=== PATIENT | female | born 2000 | race Hispanic/Latino ===

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

== ENCOUNTER 2018-11-08 15:55 | Emergency (ER) | payer SELFPAY ==
[2018-11-08 16:58] LABS: Bilirubin Negative (Negative); Blood, Urine Large (Negative); Clarity Clear (Clear); Glucose, Urine (Dipstick) Negative (Negative); Leukocyte Negative (Negative); Nitrite Negative (Negative); Protein, Urine (Dipstick) Negative (Neg-Trace); Urobilinogen 0.2 mg/dL (0.2-1.0); pH, Urine 5.5 (5.0-9.0)
[2018-11-08 17:00] LABS: Pregnancy Test - Urine (BHCG) Negative (Negative); Pregu Control Background? CLEAR/WHITE (CLR/WHITE); Pregu Control Bar Appear? YES (CONTROL BAR)
[2018-11-08 17:02] LABS: RBC/HPF 21-50 HPF (0-3); WBC/HPF 0-3 HPF (0-3)
[2018-11-08 17:03] LABS: Bacteria/HPF 3+ HPF (None Seen); Other Microscopic Description MUCOUSE THREADS
[2018-11-10 03:07] LABS: Chlamydia by PCR Not Detected (NotDetected); GC by PCR Not Detected (NotDetected)
== END 2018-11-08 17:15 | disposition home or self-care (01) ==
LOC: BURERS 15:55
DX: N93.9 Abnormal uterine and vaginal bleeding, unspecified (principal)
CPT/HCPCS: 81003; 81015; 81025; 87480; 87491; 87510; 87591; 87660; 99283

== ENCOUNTER 2019-01-17 12:59 | Emergency (ER) | payer SELFPAY ==
[2019-01-17 13:33] LABS: Pregnancy Test - Urine (BHCG) Negative (Negative); Pregu Control Background? CLEAR/WHITE (CLR/WHITE); Pregu Control Bar Appear? YES (CONTROL BAR)
[2019-01-17 13:33] LABS: Clarity Clear (Clear)
[2019-01-17 13:34] LABS: Bilirubin Negative (Negative); Blood, Urine Trace (Negative); Glucose, Urine (Dipstick) Negative (Negative); Leukocyte Small (Negative); Nitrite Negative (Negative); Protein, Urine (Dipstick) Negative (Neg-Trace); pH, Urine 6.5 (5.0-9.0)
[2019-01-17 13:36] LABS: Bacteria/HPF Rare-Few HPF (None Seen); RBC/HPF 0-3 HPF (0-3); Squamous Epithelial 0-3 HPF (0-3); Transitional Epithelial 0-3 HPF (0-3); WBC/HPF 0-3 HPF (0-3)
[2019-01-19 20:54] LABS: Chlamydia by PCR Not Detected (NotDetected); GC by PCR Not Detected (NotDetected)
== END 2019-01-17 14:00 | disposition home or self-care (01) ==
LOC: BURERS 12:59
DX: N72 Inflammatory disease of cervix uteri (principal); R10.30 Lower abdominal pain, unspecified
CPT/HCPCS: 81003; 81015; 81025; 87480; 87491; 87510; 87591; 87660; 99284

== ENCOUNTER 2020-03-29 23:44 | Emergency (ER) | payer OTHER, SELFPAY ==
[2020-03-30] MEDS ORDERED: Ibuprofen 200 MG TAB ONE (01:40)
[2020-03-30 01:43] LABS: Bilirubin Small (Negative); Blood, Urine Trace (Negative); Clarity Cloudy (Clear); Glucose, Urine (Dipstick) Negative (Negative); Ketone, Urine 15 mg/dL (Negative); Leukocyte Negative (Negative); Nitrite Negative (Negative); Protein, Urine (Dipstick) 30 mg/dL (Neg-Trace); pH, Urine 5.5 (5.0-9.0)
[2020-03-30 01:45] LABS: Specific Gravity, Urine 1.033 (1.002-1.036)
[2020-03-30 01:47] LABS: Pregnancy Test - Urine (BHCG) Negative (Negative); Pregu Control Background? CLEAR/WHITE (CLR/WHITE); Pregu Control Bar Appear? YES (CONTROL BAR); Specific Gravity 1.033 (1.002-1.036)
[2020-03-30 01:52] LABS: Bacteria/HPF 2+ HPF (None Seen); Mucous/LPF 2+ LPF (<2+); WBC/HPF 0-3 HPF (0-3)
[2020-03-30] MEDS ORDERED: Dicyclomine 20 MG TAB ONE (01:59)
[2020-03-31 12:30] LABS: SARS-CoV-2 MS2 Positive; SARS-CoV-2 N Gene Negative; SARS-CoV-2 S Gene Negative; SARS-CoV-2 by NAA Not Detected (NotDetected); SARS-CoV-2 orf1ab Negative
== END 2020-03-30 02:02 | disposition home or self-care (01) ==
LOC: BURERS 23:44
DX: B34.9 Viral infection, unspecified (principal); R19.7 Diarrhea, unspecified; J45.909 Unspecified asthma, uncomplicated; Z20.828 Contact with and (suspected) exposure to other viral communicable diseases
CPT/HCPCS: 81003; 81015; 81025; 87086; 87635; 87804; 99284; U0003

== ENCOUNTER 2020-04-02 01:07 | Emergency (ER) | payer SELFPAY ==
[2020-04-02 01:57] LABS: ALT (SGPT) 52 U/L (8-55); AST (SGOT) 58 U/L (5-34); Alkaline Phosphatase 137 U/L (40-110); Anion Gap 14 mmol/L (10-20); BUN (Urea Nitrogen) 7 mg/dL (7.0-18.7); Bilirubin, Total 0.6 mg/dL (0.2-1.2); Calc. Creatinine Clearance 0 mL/min (70-130); Calcium 9.2 mg/dL (7.8-10.44); Carbon Dioxide 23 mmol/L (22-29); Chloride 105 mmol/L (98-107); Estimated GFR-MDRD Greater than 90; Globulin 3.4 g/dL (2.4-3.5); Glucose 101 mg/dL (70-105); Lipase 28 U/L (8-78); Potassium 3.3 mmol/L (3.5-5.1); Protein, Total 7.4 g/dL (6.0-8.3); Sodium 139 mmol/L (136-145)
[2020-04-02 02:03] LABS: Hemoglobin 13.3 g/dL (12.0-16.0); Mean Corpuscular HGB CONC 32.4 g/dL (32.0-36.0); Mean Corpuscular Hemoglobin 28.1 pg (27.0-31.0); Mean Corpuscular Volume 86.8 fL (78.0-98.0); Platelet Count 240 thou/uL (130-400); RBC Distribution Width 12.1 % (11.5-14.5); Red Blood Cell (RBC) Count 4.72 mill/uL (4.20-5.40); White Blood Cell (WBC) Count 8.1 thou/uL (4.8-10.8)
[2020-04-02 02:04] LABS: Manual Diff?? YES; Mean Platelet Volume 9.4 fL (7.4-10.4)
[2020-04-02 02:09] LABS: Band 3 % (5-11); Lymphocytes 34 % (21-51); Monocytes 5 % (0-10); Neutrophil 52 % (42-75); Reactive Lymphocytes 3 % (0-10)
[2020-04-02 02:10] LABS: Eosinophils 3 % (0-10); Toxic Granulation SLIGHT
[2020-04-02 02:11] LABS: MDiff Complete? YES; Platelet Morphology Comment Appears Adequate; RBC Morphology Normal
[2020-04-02 02:17] LABS: BHCG - Serum Negative (NEGATIVE); Pregs Control Background? CLEAR/WHITE (CLR/WHITE); Pregs Control Bar Appear? YES (CONTROL BAR)
--- NOTE | 2020-04-02 07:17 | CT ---
PRELIMINARY REPORT/[facility]/EMERGENCY AFTER HOURS PROCEDURE: EXAM: CT Abdomen and Pelvis with Intravenous Contrast CLINICAL HISTORY: PT is a 19 yo female who presents with worsening mid to LUQ abdominal pain radiating into the bilater al lower quadrants. Patient notes numerous loose stools non bloody, green in appearance. Patient had a recent COVID swab on March 30 in the ED and the result was negative. Patient denies other sick conta cts. No recent travel or antibiotics. Denies cough, chest pain, or shortness of breath. No flank pain . No vaginal discharge or dysuria or urgency. No abdominal surgical history. TECHNIQUE: Axial computed tomography images of the abdomen and pelvis with intravenous contrast. CONTRAST: With; 100ml ISO 370 COMPARISON: None provided. FINDINGS: LUNG BASES: No basilar airspace consolidation or pleural effusion. LIVER: Unremarkable. GALLBLADDER AND BILE DUCTS: Unremarkable. No calcified stone. No ductal dilation. PANCREAS: Unremarkable. SPLEEN: Unremarkable. ADRENAL GLANDS: Unremarkable. KIDNEYS, URETERS, AND BLADDER: Unremarkable. No hydronephrosis or nephrolithiasis. No ureteral or bladder calculi. STOMACH AND BOWEL: Diffuse mural thickening of the colon most prominent in the transverse and ascending colon with adjac ent pericolonic mild inflammatory changes is compatible with colitis. No bowel obstruction. APPENDIX: Normal appendix. PERITONEUM: No free fluid. No free air. LYMPH NODES: Increased number of mildly enlarged lymph nodes in the mesentery may be reactive. REPRODUCTIVE: Unremarkable as visualized. VASCULATURE: No aortic aneurysm. BONES: No fracture or suspicious osseous abnormality. ABDOMINAL WALL AND SOFT TISSUES: Foci of gas within the subcutaneous soft tissues of the right buttocks adjacent to the gluteal muscle s may be related to an injection. Correlation with history assess her physical examination is recomme nded in order to exclude an infectious process. IMPRESSION: Diffuse mural thickening of the colon most prominent in the transverse and ascending colon with adjac ent pericolonic mild inflammatory changes is compatible with colitis. Foci of gas within the subcutaneous soft tissues of the right buttocks adjacent to the gluteal muscle s may be related to an injection. Correlation with history assess her physical examination is recomme nded in order to exclude an infectious process. ELECTRONICALLY SIGNED BY: Mariel Uriarte MD Apr 02, 2020 3:08:57 AM CDT This report is intended for review by the ordering physician only, in accordance of law. If you recei ve this report in error, please call [facility] at [phone]. FINAL REPORT CT ABDOMEN AND PELVIS WITH CONTRAST: Date: 04/02/[address] of the abdomen and pelvis was performed for evaluation of pain. The right lung base is clear. In the left lung base, there are a few patchy areas that are nonspecifi c in appearance, one in the lingula and one in the left lower lobe. In the left lower lobe, some of t he bronchi seem slightly dilated peripherally, so there might even be a little focal area of bronchie ctasis here. There are no effusions. The liver and spleen contain no space-occupying disease. The liver may be upper normal in size. The p ancreas and adrenal glands appear normal. The gallbladder is decompressed, but no stones seen within it. No mass or hydronephrosis seen in either kidney. Aorta is normal in caliber. The major finding on the study is diffuse wall thickening of the colon beginning around the ascending colon region and extending through most of the transverse colon. The more distal portions of the col on seem a bit more normal. Colitis is presumed. Small bowel is not dilated. There is a plethora of mi ldly enlarged mesenteric nodes. No free air or free fluid present. CT of the pelvis shows a 4.0 cm cystic appearing area in the right adnexa. I cannot rule out a cyst h ere. An elective ultrasound might be helpful. No free fluid or inflammatory changes seen here. IMPRESSION: 1. Findings consistent with diffuse colitis involving primarily the ascending and transverse colon. This could be either infectious or inflammatory in nature. 2. A few patchy areas in the left lung base. I understand the patient has had a recent COVID test th at was negative. I would wonder if might be worth a retest to be certain. 3. Reactive nodes in the mesentery. 4. Possible 3-4 cm right adnexal cyst. Elective ultrasound recommended. Report in substantial agreement with preliminary reading by [facility]. POS: HOME
== END 2020-04-02 02:23 | disposition home or self-care (01) ==
LOC: BURERS 01:07
DX: K52.9 Noninfective gastroenteritis and colitis, unspecified (principal)
CPT/HCPCS: 74177; 80053; 83690; 84703; 85025; 96360; 96372; J0500

== ENCOUNTER 2020-04-25 15:18 | Emergency (ER) | payer SELFPAY ==
[2020-04-25 16:52] LABS: Bilirubin Negative (Negative); Blood, Urine Negative (Negative); Glucose, Urine (Dipstick) Negative (Negative); Ketone, Urine Negative (Negative); Leukocyte Small (Negative); Nitrite Negative (Negative); Protein, Urine (Dipstick) Negative (Neg-Trace); pH, Urine 6.5 (5.0-9.0)
[2020-04-25 16:56] LABS: Clarity Cloudy (Clear)
[2020-04-25 16:57] LABS: Bacteria/HPF 1+ HPF (None Seen); Pregnancy Test - Urine (BHCG) Negative (Negative); Pregu Control Background? CLEAR/WHITE (CLR/WHITE); Pregu Control Bar Appear? YES (CONTROL BAR); RBC/HPF 0-3 HPF (0-3)
== END 2020-04-25 17:05 | disposition home or self-care (01) ==
LOC: BURERS 15:18
DX: R55 Syncope and collapse (principal); J45.909 Unspecified asthma, uncomplicated; F41.9 Anxiety disorder, unspecified; Z79.899 Other long term (current) drug therapy
CPT/HCPCS: 36416; 81003; 81015; 81025; 87086; 99284

== ENCOUNTER 2020-05-18 10:03 | Emergency (ER) | payer OTHER, SELFPAY ==
[2020-05-19 13:38] LABS: SARS-CoV-2 MS2 Positive; SARS-CoV-2 N Gene Negative; SARS-CoV-2 S Gene Negative; SARS-CoV-2 by NAA Not Detected (NotDetected); SARS-CoV-2 orf1ab Negative
== END 2020-05-18 10:24 | disposition home or self-care (01) ==
LOC: BURERS 10:03
DX: B34.9 Viral infection, unspecified (principal); Z20.828 Contact with and (suspected) exposure to other viral communicable diseases; J45.909 Unspecified asthma, uncomplicated; F41.9 Anxiety disorder, unspecified
CPT/HCPCS: 87635; 99283; U0003

== ENCOUNTER 2020-12-07 01:11 | Emergency (ER) | payer OTHER, SELFPAY | END 2020-12-07 01:45 | disposition home or self-care (01) | LOC: BURERS 01:11 | DX: O9A.212 Injury, poisoning and certain other consequences of external causes complicating pregnancy, second trimester (principal); S30.1XXA Contusion of abdominal wall, initial encounter; Z3A.14 14 weeks gestation of pregnancy; W19.XXXA Unspecified fall, initial encounter ==

== ENCOUNTER 2022-05-20 23:56 | Emergency (ER) | payer SELFPAY ==
[2022-05-21] MEDS ORDERED: Acetaminophen 500 MG TAB ONE (00:20)
[2022-05-21 00:25] LABS: Bilirubin Negative (Negative); Blood, Urine Negative (Negative); Clarity Clear (Clear); Glucose, Urine (Dipstick) Negative (Negative); Ketone, Urine Negative (Negative); Leukocyte Small (Negative); Nitrite Negative (Negative); Protein, Urine (Dipstick) Negative (Neg-Trace); Specific Gravity, Urine 1.015 (1.005-1.030); Urobilinogen 0.2 mg/dL (Less than 2); pH, Urine 7.5 (5.0-9.0)
[2022-05-21 00:33] LABS: Bacteria/HPF 1+ HPF (None Seen); RBC/HPF None Seen HPF (0-3); Squamous Epithelial 0-3 HPF (0-3)
[2022-05-21] MEDS ORDERED: Nitrofurantoin Monohyd/M-Cryst 100 MG CAP ONE (00:43)
== END 2022-05-21 00:53 | disposition home or self-care (01) ==
LOC: BURERS 23:56
DX: O99.891 Other specified diseases and conditions complicating pregnancy (principal); M54.50 Low back pain, unspecified; R82.71 Bacteriuria; Z3A.29 29 weeks gestation of pregnancy
CPT/HCPCS: 81003; 81015; 87086; 99283

== ENCOUNTER 2023-08-01 10:44 | Emergency (ER) | payer MEDICAID, SELFPAY ==
[2023-08-01 10:59] LABS: Bilirubin Negative (Negative); Blood, Urine Small (Negative); Clarity Slightly Cloudy (Clear); Glucose, Urine (Dipstick) Negative (Negative); Ketone, Urine Negative (Negative); Leukocyte Moderate (Negative); Nitrite Negative (Negative); Protein, Urine (Dipstick) 30 mg/dL (Neg-Trace); Specific Gravity, Urine 1.025 (1.005-1.030); Urobilinogen 0.2 mg/dL (Less than 2)
[2023-08-01 11:01] LABS: Pregnancy Test - Urine (BHCG) Negative (Negative); Pregu Control Background? CLEAR/WHITE (CLR/WHITE); Pregu Control Bar Appear? YES (CONTROL BAR); Specific Gravity 1.025 (1.002-1.036)
[2023-08-01 11:12] LABS: Bacteria/HPF 2+ HPF (None Seen); CAUTI Indications for Culture Pelvic or flank pain; Triple Phosphate Crystal 1+ HPF (None Seen); WBC/HPF 21-50 HPF (0-3)
[2023-08-01 11:14] LABS: Urine Culture Reflex Yes Yes
== END 2023-08-01 11:58 | disposition home or self-care (01) ==
LOC: BURERS 10:44
DX: N39.0 Urinary tract infection, site not specified (principal)
CPT/HCPCS: 81001; 81025; 87077; 87086; 87186; 99283

== ENCOUNTER 2024-09-17 20:49 | Emergency (ER) | payer SELFPAY | END 2024-09-17 21:48 | disposition home or self-care (01) | LOC: BURERS 20:49 | DX: L73.9 Follicular disorder, unspecified (principal) | CPT/HCPCS: 99282 ==